=== PATIENT | male | born 1955 | race American Indian/Alaskan Native ===

== ENCOUNTER 2021-04-02 21:04 | Emergency (ER) | payer BC ==
[2021-04-02 21:19] VITALS: BP 145/95
[2021-04-02] MEDS ORDERED: HYDROcodone/ACETAMINOPHEN 5-325 MG TAB PO ONE (21:34)
--- NOTE | 2021-04-02 22:14 | XRay Report ---
LEFT WRIST 3 VIEW(S) INDICATION / CLINICAL INFORMATION: pain COMPARISON: None available. FINDINGS: BONES / JOINT(S): No acute fracture or subluxation. Mild polyarticular DJD. Chondrocalcinosis involvi ng the TFCC. SOFT TISSUES: Vascular calcification. ADDITIONAL FINDINGS: None. Signer Name: Matt Coleman MD Signed: 04/02/2021 10:10 PM Workstation Name: [id number]
[2021-04-02 22:20] LABS: Alanine Aminotransferase 19 units/L (7-56); Albumin 3.3 g/dL (3.9-5); BUN/Creatinine Ratio 18; Blood Urea Nitrogen 25 mg/dL (9-20); Calcium 9.7 mg/dL (8.4-10.2); Hemolysis Index 28
[2021-04-02 22:35] LABS: Basophils % (Auto) 0.3 % (0.0-1.8); Eosinophils # (Auto) 0.1 K/mm3 (0.0-0.4); Eosinophils % (Auto) 1.5 % (0.0-4.3); Hematocrit 36.3 % (35.5-45.6); Hemoglobin 11.7 gm/dl (11.8-15.2); Lymphocytes # (Auto) 1.1 K/mm3 (1.2-5.4); Lymphocytes % (Auto) 15.5 % (13.4-35.0); Mean Corpuscular HGB Conc 32 % (32-34); Mean Corpuscular Volume 90 fl (84-94); Monocytes % (Auto) 14.5 % (0.0-7.3); Platelet Count 465 K/mm3 (140-440); Red Blood Count 4.03 M/mm3 (3.65-5.03); Red Cell Distribution Width 14.9 % (13.2-15.2)
--- NOTE | 2021-04-02 22:40 | Emergency Department Report ---
Upper Extremity - HPI Chief Complaint: Extremity Injury, Upper Stated Complaint: LEFT HAND PAIN Time Seen by Provider: 04/02/21 21:25 Upper Extremity: Left Wrist Occurred When: 2 Days Severity: moderate Symptoms: Yes Pain with Movement, Yes Swelling Other History: left hand pain x4 days. Pt states he had tendon surgery in the past and his had has been painful lately limiting his mobility. ED Review of Systems ROS: Stated complaint: LEFT HAND PAIN Other details as noted in HPI Constitutional: denies: chills, fever Eyes: denies: eye pain, eye discharge, vision change ENT: denies: ear pain, throat pain Respiratory: denies: cough, shortness of breath, wheezing Cardiovascular: denies: chest pain, palpitations Endocrine: no symptoms reported Gastrointestinal: denies: abdominal pain, nausea, diarrhea Genitourinary: denies: urgency, dysuria Musculoskeletal: denies: back pain, joint swelling, arthralgia Skin: denies: rash, lesions Neurological: denies: headache, weakness, paresthesias Psychiatric: denies: anxiety, depression Hematological/Lymphatic: denies: easy bleeding, easy bruising ED Past Medical Hx - Past Medical History Hx Hypertension: Yes - Surgical History Additional Surgical History: kidney transplant - Medications Home Medications: Home Medications Medication Instructions Recorded Confirmed Last Taken Type Acetaminophen/Codeine [Tylenol 1 tab PO Q6H PRN #10 tab 04/02/21 Unknown Rx /Codeine # 3 tab] Upper Extremity Exam - Exam General: Vital signs noted. No distress. Alert and acting appropriately. Head and Torso: No HEENT Abnormality, No Neck Tenderness, No Chest/Lungs Abnormality, No Abdominal Tenderness, No Back Tenderness Shoulder Exam: Yes Normal Range of Motion in Shoulder, No Shoulder Tenderness, No Clavicle Tenderness, No Shoulder Deformity, No AC Joint Tenderness Arm Exam: No Arm/Humerus Tenderness, No Arm Deformity Elbow: No Elbow Tenderness, No Normal Range of Motion in Elbow, No Elbow Deformity Forearm: No Forearm Tenderness, No Forearm Deformity, No Pain with Pronation, No Pain with Supination Wrist: Yes Wrist Tenderness, No Wrist Deformity, No Snuffbox Tenderness, No Pain with Axial Thumb Compression Hand: Yes Normal ROM in Digit(s), No Hand Tenderness, No Hand Deformity, No Digit Tenderness, No Digit(s) Deformity, No Tendon Dysfunction CMS Exam: No Broken Skin, No Normal Distal Pulses, No Normal Capillary Refill, No Normal Distal Sensation ED Course Vital Signs 04/02/21 04/02/21 21:18 21:40 Temperature 98.0 F Pulse Rate 93 H Respiratory 18 18 Rate Blood Pressure 145/95 O2 Sat by Pulse 99 Oximetry ED Medical Decision Making - Lab Data Result diagrams: 04/02/21 21:39 04/02/21 21:39 Critical care attestation.: If time is entered above; I have spent that time in minutes in the direct care of this critically ill patient, excluding procedure time. ED Disposition Clinical Impression: Arthritis of left wrist Disposition: HOME / SELF CARE / HOMELESS Is pt being admited?: No Does the pt Need Aspirin: No Condition: Stable Instructions: Osteoarthritis Prescriptions: Acetaminophen/Codeine [Tylenol /Codeine # 3 tab] 1 tab PO Q6H PRN #10 tab PRN Reason: Pain , Severe (7-10)
== END 2021-04-02 23:19 | disposition home or self-care (01) ==
LOC: ED 21:04
DX: M13.832 Other specified arthritis, left wrist (principal); I10 Essential (primary) hypertension; Z94.0 Kidney transplant status
CPT/HCPCS: 36415; 80053; 84550; 85025; 86140; 99283; 99284

== ENCOUNTER 2021-11-11 17:52 | Emergency (ER) | payer BC ==
[2021-11-11 21:50] VITALS: BP 174/106
--- NOTE | 2021-11-11 22:18 | XRay Report ---
Right hand 3 views INDICATION: Pain and swelling FINDINGS: MCP joints and IP joints appear intact. Diffuse soft tissue swelling over the dorsal aspect of the hand. Vascular calcifications throughout. Signer Name: Jeet Tiwari MD Signed: 11/11/2021 10:14 PM Workstation Name: [id number]
--- NOTE | 2021-11-11 22:34 | Emergency Department Report ---
ED General Adult HPI - General Chief complaint: Extremity Injury, Upper Stated complaint: RIGHT HAND SWOLLEN Time Seen by Provider: 11/11/21 22:23 Source: patient Mode of arrival: Ambulatory Limitations: No Limitations - History of Present Illness Initial comments: 66 Y M with PMH report to ER with C/O right hand pain with swelling x 1 week with last 2 days being the worst. Patient denies no injury reported. No other acute symptoms reported. - Related Data Previous Rx's Medication Instructions Recorded Last Taken Type Acetaminophen/Codeine [Tylenol 1 tab PO Q6H PRN #10 tab 04/02/21 Unknown Rx /Codeine # 3 tab] Acetaminophen/Codeine [Tylenol 1 tab PO Q6H PRN 2 Days #8 tab 11/11/21 Unknown Rx /Codeine # 3 tab] Naproxen [EC-Naproxen] 500 mg PO BID 6 Days #12 tab 11/11/21 Unknown Rx predniSONE [Deltasone] 20 mg PO QDAY 6 Days #6 tab 11/11/21 Unknown Rx Allergies Allergy/AdvReac Type Severity Reaction Status Date / Time No Known Allergies Allergy Verified 04/02/21 21:20 ED Review of Systems ROS: Stated complaint: RIGHT HAND SWOLLEN Other details as noted in HPI Comment: All other systems reviewed and negative Musculoskeletal: joint swelling, other (right hand pain ) ED Past Medical Hx - Past Medical History Hx Hypertension: Yes - Surgical History Additional Surgical History: kidney transplant - Social History Smoking Status: Never Smoker Substance Use Type: None - Medications Home Medications: Home Medications Medication Instructions Recorded Confirmed Last Taken Type Acetaminophen/Codeine [Tylenol 1 tab PO Q6H PRN #10 tab 04/02/21 Unknown Rx /Codeine # 3 tab] Acetaminophen/Codeine [Tylenol 1 tab PO Q6H PRN 2 Days #8 tab 11/11/21 Unknown Rx /Codeine # 3 tab] Naproxen [EC-Naproxen] 500 mg PO BID 6 Days #12 tab 11/11/21 Unknown Rx predniSONE [Deltasone] 20 mg PO QDAY 6 Days #6 tab 11/11/21 Unknown Rx ED Physical Exam - General Limitations: No Limitations General appearance: alert, in no apparent distress - Head Head exam: Present: atraumatic, normocephalic - Eye Eye exam: Present: normal appearance - ENT ENT exam: Present: mucous membranes moist - Neck Neck exam: Present: normal inspection - Respiratory Respiratory exam: Present: normal lung sounds bilaterally. Absent: respiratory distress - Cardiovascular Cardiovascular Exam: Present: regular rate, normal rhythm. Absent: systolic murmur, diastolic murmur, rubs, gallop - GI/Abdominal GI/Abdominal exam: Present: soft, normal bowel sounds - Rectal Rectal exam: Present: deferred - Extremities Exam Extremities exam: Present: normal inspection - Expanded Upper Extremity Exam Right Hand Wrist exam: Present: full ROM, tenderness, swelling. Absent: deformity, dislocation, erythema - Back Exam Back exam: Present: normal inspection - Neurological Exam Neurological exam: Present: alert, oriented X3 - Psychiatric Psychiatric exam: Present: normal affect, normal mood - Skin Skin exam: Present: warm, dry, intact, normal color. Absent: rash ED Course Vital Signs 11/11/21 21:46 Temperature 98.4 F Pulse Rate 62 Respiratory 18 Rate Blood Pressure 174/106 O2 Sat by Pulse 99 Oximetry ED Medical Decision Making - Radiology Data Radiology results: report reviewed, image reviewed [address] [address] XRay Report Signed Patient: JOHN LOPEZ MR#: [id number] : 1955 Acct:[id number] Age/Sex: 66 / M ADM Date: 11/11/21 Loc: ED Attending Dr: Ordering Physician: RAMANA ROSA MD Date of Service: 11/11/21 Procedure(s): XR hand 3+V RT Accession Number(s): [id number] cc: RAMANA ROSA MD Fluoro Time In Minutes: Right hand 3 views INDICATION: Pain and swelling FINDINGS: MCP joints and IP joints appear intact. Diffuse soft tissue swelling over the dorsal aspect of the hand. Vascular calcifications throughout. Signer Name: Jeet Tiwari MD Signed: 11/11/2021 10:14 PM Workstation Name: [id number] Transcribed By: CW Dictated By: LLUVIA TIWARI MD Electronically Authenticated By: LLUVIA TIWARI MD Signed Date/Time: 11/11/212213 DD/ 12 TD/TT: - Medical Decision Making 66-year-old male with prior medical history of hypertension reports to the ER with right hand swelling and pain for 1 week. Patient denies any acute injury. Right hand with swelling and tenderness noted. Consistent with possible gout. Hand x-ray FINDINGS: MCP joints and IP joints appear intact. Diffuse soft tissue swelling over the dorsal aspect of the hand. Vascular calcifications throughout. Patient informed of x-ray findings. Patient informed to follow-up primary care provider for further evaluation of possible gout and further management. Patient agrees with plan of care verbalized understanding. Patient discharged home with steroids NSAID and pain medicine for pain control. Patient informed to follow back up in the ER if symptoms are to get worse. Vital Signs 11/11/21 21:46 Temperature 98.4 F Pulse Rate 62 Respiratory 18 Rate Blood Pressure 174/106 O2 Sat by Pulse 99 Oximetry BP 174/109, HR 69, 100% , 98 temp 16 RR Critical care attestation.: If time is entered above; I have spent that time in minutes in the direct care of this critically ill patient, excluding procedure time. ED Disposition Clinical Impression: Swelling of right hand, Hand pain, right Gout Qualifiers: Gout site: hand Gout etiology: unspecified cause Chronicity: acute Laterality: right Qualified Code(s): M10.9 - Gout, unspecified Disposition: 01 HOME / SELF CARE / HOMELESS Is pt being admited?: No Condition: Stable Instructions: Low-Purine Eating Plan, Hand Pain Prescriptions: predniSONE [Deltasone] 20 mg PO QDAY 6 Days #6 tab Naproxen [EC-Naproxen] 500 mg PO BID 6 Days #12 tab Acetaminophen/Codeine [Tylenol /Codeine # 3 tab] 1 tab PO Q6H PRN 2 Days #8 tab PRN Reason: Pain , Severe (7-10) Referrals: PRIMARY CARE, [Primary Care Provider] - 3-5 Days [facility] [Outside] - 3-5 Days [facility] [Outside] - 3-5 Days [facility] [Outside] - 3-5 Days [facility] [Outside] - 3-5 Days Forms: Work/School Release Form(ED)
[2021-11-11] MEDS ORDERED: IBUPROFEN 600 MG TAB PO ONE (22:39)
[2021-11-11] MEDS ORDERED: HYDROcodone/ACETAMINOPHEN 5-325 MG TAB PO ONE (22:39)
== END 2021-11-11 23:11 | disposition home or self-care (01) ==
LOC: ED 17:52
DX: M25.441 Effusion, right hand (principal); M10.9 Gout, unspecified; I10 Essential (primary) hypertension
CPT/HCPCS: 99283